=== PATIENT | male | born 1965 | race Caucasian/White ===

== ENCOUNTER 2019-01-25 09:56 | Emergency (ER) | payer BC ==
[~2019-01-25] VITALS: Ht 177.8 cm; Wt 136.1 kg
[~2019-01-25 09:56] MED LIST: Excedrin Extra1 EACH; LEVSOD100 PO; OXYACE5T; Prednisone20 MG PO
[2019-01-25 10:56] LABS: BASOPHILS ABSOLUTE AUTO 0.08 K/mm3 (0.00-0.23); BASOPHILS PERCENT AUTO 1 % (0-2); EOSINOPHILS ABSOLUTE AUTO 0.08 K/mm3 (0.00-0.68); EOSINOPHILS PERCENT AUTO 1 % (0-6); Hematocrit 45.7 % (37.0-53.0); Hemoglobin 16.1 g/dL (13.5-17.5); IMMATURE GRAN ABSOLUTE AUTO 0.03 K/mm3 (0.00-0.10); IMMATURE GRAN PERCENT AUTO 0 % (0-1); LYMPHOCYTES ABSOLUTE AUTO 1.32 K/mm3 (0.84-5.20); LYMPHOCYTES PERCENT AUTO 15 % (21-46); MONOCYTES ABSOLUTE AUTO 0.65 K/mm3 (0.16-1.47); MONOCYTES PERCENT AUTO 7 % (4-13); Mean Corpuscular HGB 29.7 pg (26.0-34.0); Mean Corpuscular HGB Conc 35.2 g/dL (31.5-36.5); Mean Corpuscular Volume 84 fL (80-100); Mean Platelet Volume 12.6 fL (9.1-12.4); NEUTROPHILS ABSOLUTE AUTO 6.73 K/mm3 (1.96-9.15); NEUTROPHILS PERCENT AUTO 76 % (41-73); Platelet Count 144 K/mm3 (150-400); RDW Coefficient Variation 13.6 % (11.7-14.2); RDW Standard Deviation 41.4 fL (35.1-46.3); Red Blood Cell Count 5.42 M/mm3 (4.30-5.90); White Blood Cell Count 8.89 K/mm3 (4.00-11.30)
[2019-01-25 11:16] LABS: Alanine Aminotransfer (ALT/SGP 71 U/L (12-78); Albumin, Blood 4.2 g/dL (3.4-5.0); Albumin/Globulin Ratio 1.4 (0.8-1.8); Alk Phos 79 U/L (50-136); Anion Gap 8 mmol/L (6-16); Aspartate Aminotrans (AST/SGOT 34 U/L (12-37); Bilirubin, Total 0.7 mg/dL (0.1-1.0); Blood Urea Nitrogen 14 mg/dL (8-24); Bun/Creatinine Ratio 12.1 (12.0-20.0); CO2, Blood 21 mmol/L (21-32); Calcium, Blood 8.5 mg/dL (8.5-10.1); Chloride, Blood 114 mmol/L (98-108); Creatinine, Blood 1.16 mg/dL (0.60-1.20); Glomerular Filtration Rate >60 (60-); Glucose, Blood 118 mg/dL (70-99); Potassium, Blood 4.3 mmol/L (3.5-5.5); Sodium, Blood 143 mmol/L (136-145); Total Protein, Blood 7.2 g/dL (6.4-8.2)
[2019-01-25] MEDS ORDERED: HYDMOR2 PO (14:39)
[2019-01-25] MEDS ORDERED: Zofran8 MG PO (14:39)
[2019-01-25] MEDS ORDERED: KETO10 PO (14:39)
== END 2019-01-25 15:11 | disposition home or self-care (01) ==
LOC: ER 09:56
PROVIDERS: Emergency Medicine
DX: N13.2 Hydronephrosis with renal and ureteral calculous obstruction (principal); Z88.8 Allergy status to other drugs, medicaments and biological substances; Z79.52 Long term (current) use of systemic steroids; Z79.899 Other long term (current) drug therapy; E03.9 Hypothyroidism, unspecified
CPT/HCPCS: 36415; 74177; 80053; 83690; 85025; 93005; 93010; 96361; 96374-59; 96375; 96376; 99284-25; J1170; J1885; J2405; J7120; Q9967

== ENCOUNTER → 2020-02-10 | Outpatient (CLI) | payer BC ==
[~2020-02-10] MED LIST changes: +HYDMOR2 PO; +KETO10 PO; +Motion Sickness25 M1 PO; +NAPR220 PO; +Zofran8 MG PO
== END | disposition home or self-care (01) ==
LOC: PLD 09:12 → LAB SHORT 09:12
DX: D48.5 Neoplasm of uncertain behavior of skin (principal)
CPT/HCPCS: 88305

== ENCOUNTER → 2020-04-10 | Outpatient (CLI) | payer BC | END | disposition home or self-care (01) | LOC: PLD 07:30 → LAB SHORT 07:30 | DX: C44.41 Basal cell carcinoma of skin of scalp and neck (principal) | CPT/HCPCS: 88305 ==

== ENCOUNTER 2021-12-25 08:49 | Day surgery (SDC) | payer BC ==
[~2021-12-25] VITALS: Ht 177.8 cm; Wt 146.1 kg
[2021-12-25] MEDS ORDERED: FLUN25SP (09:14)
--- NOTE | 2021-12-25 09:24 | NUR ---
12/25/21 0924 [place] Aguillon CALL LIGHT WITHIN REACH.
== END 2021-12-25 10:40 | disposition home or self-care (01) ==
LOC: ORSCSDS 08:49
PROVIDERS: Anesthesiology
PROC: 3E0R33Z Introduction of Anti-inflammatory into Spinal Canal, Percutaneous Approach (ICD-10-PCS; principal; 2021-12-25 10:15)
DX: M51.16 Intervertebral disc disorders with radiculopathy, lumbar region (principal); E66.01 Morbid (severe) obesity due to excess calories; Z68.42 Body mass index [BMI] 45.0-49.9, adult; M54.50 Low back pain, unspecified
CPT/HCPCS: J1040

== ENCOUNTER 2022-03-01 09:23 | Day surgery (SDC) | payer BC ==
[~2022-03-01] VITALS: Ht 177.8 cm; Wt 144.8 kg
[~2022-03-01 09:23] MED LIST changes: +FLUN25SP
== END 2022-03-01 10:41 | disposition home or self-care (01) ==
LOC: ORSCSDS 09:23
PROVIDERS: Anesthesiology
PROC: 3E0R33Z Introduction of Anti-inflammatory into Spinal Canal, Percutaneous Approach (ICD-10-PCS; principal; 2022-03-01 10:15)
DX: M51.16 Intervertebral disc disorders with radiculopathy, lumbar region (principal); M54.50 Low back pain, unspecified; M48.00 Spinal stenosis, site unspecified; E66.01 Morbid (severe) obesity due to excess calories; Z68.42 Body mass index [BMI] 45.0-49.9, adult
CPT/HCPCS: J1040

== ENCOUNTER → 2022-09-30 | Outpatient (CLI) | payer BC | END | disposition home or self-care (01) | LOC: LAB SHORT 10:34 | DX: D48.5 Neoplasm of uncertain behavior of skin (principal) | CPT/HCPCS: 88305 ==

== ENCOUNTER 2023-01-23 17:47 | Emergency (ER) | payer BC ==
[~2023-01-23] VITALS: Ht 177.8 cm; Wt 99.8 kg
[2023-01-23 18:29] LABS: BASOPHILS ABSOLUTE AUTO 0.06 K/mm3 (0.00-0.23); BASOPHILS PERCENT AUTO 1 % (0-2); EOSINOPHILS ABSOLUTE AUTO 0.04 K/mm3 (0.00-0.68); EOSINOPHILS PERCENT AUTO 0 % (0-6); Hematocrit 47.7 % (37.0-53.0); Hemoglobin 17.2 g/dL (13.5-17.5); IMMATURE GRAN ABSOLUTE AUTO 0.04 K/mm3 (0.00-0.10); IMMATURE GRAN PERCENT AUTO 0 % (0-1); LYMPHOCYTES ABSOLUTE AUTO 0.87 K/mm3 (0.84-5.20); LYMPHOCYTES PERCENT AUTO 7 % (21-46); MONOCYTES ABSOLUTE AUTO 1.05 K/mm3 (0.16-1.47); MONOCYTES PERCENT AUTO 9 % (4-13); Mean Corpuscular HGB 29.7 pg (26.0-34.0); Mean Corpuscular HGB Conc 36.1 g/dL (31.5-36.5); Mean Corpuscular Volume 82 fL (80-100); Mean Platelet Volume 12.2 fL (9.1-12.4); NEUTROPHILS ABSOLUTE AUTO 10.34 K/mm3 (1.96-9.15); NEUTROPHILS PERCENT AUTO 83 % (41-73); Platelet Count 130 K/mm3 (150-400); RDW Coefficient Variation 13.3 % (11.7-14.2); RDW Standard Deviation 39.8 fL (35.1-46.3); Red Blood Cell Count 5.79 M/mm3 (4.30-5.90)
[2023-01-23 18:53] LABS: Albumin, Blood 4.1 g/dL (3.4-5.0); Albumin/Globulin Ratio 1.3 (0.8-1.8); Bilirubin, Total 2.4 mg/dL (0.1-1.0); Bun/Creatinine Ratio 12.3 (12.0-20.0); Calcium, Blood 9.2 mg/dL (8.5-10.1); Creatinine, Blood 1.55 mg/dL (0.60-1.20); Globulin, Blood 3.2 g/dL (2.2-4.0); Potassium, Blood 4.1 mmol/L (3.5-5.5); Total Protein, Blood 7.3 g/dL (6.4-8.2)
[2023-01-23 23:30] VITALS: BP 106/69
[2023-01-24 00:39] LABS: Source, Urine Clean Catch
[2023-01-24 00:52] LABS: Blood, Urine 1+ (Neg); Glucose Qualitative, Urine Neg (Neg); Ketones, Urine 4+ (Neg); Leukocyte Esterase, Urine 2+ (Neg); Nitrite, Urine Neg (Neg); Protein, Urine 2+ (Neg); Specific Gravity, Urine 1.025 (1.003-1.022); Urobilinogen, Urine 1+ (Normal)
[2023-01-24 01:11] LABS: Appearance, Urine Hazy (Clear); Bilirubin, Urine 1+ (Neg); Color, Urine Amber (P-Yellow)
[2023-01-24 01:12] LABS: Amorphous Light (0-Heavy); Bacteria Mod /hpf; Mucus Mod (0-Heavy); Squamous Epithelial Cells Few /hpf (Few)
[2023-01-24] MEDS ORDERED: TAMS.4ER PO (01:39)
[2023-01-24] MEDS ORDERED: SULTRIDS PO (01:39)
[2023-01-24 01:45] LABS: Calcium, Ionized (POC) 1.23 mmol/L (1.10-1.46); Chloride (POC) 103 mmol/L (98-108); Creatinine (POC) 1.4 mg/dL (0.8-1.3); Glucose (ISTAT POC) 94 mg/dL (70-99); Hemoglobin (POC) 14.3 g/dL (13.5-17.5); Potassium (POC) 4.4 mmol/L (3.5-5.5); Sodium (POC) 140 mmol/L (135-148); Total CO2 (POC) 25 mmol/L (21-32)
[2023-01-24] MEDS ORDERED: ONDA4ODT MM (02:01)
[2023-01-24] MEDS ORDERED: IBUP800 PO (02:01)
[2023-01-24] MEDS ORDERED: OXAYDO5 M1 PO (02:01)
== END 2023-01-24 02:13 | disposition home or self-care (01) ==
LOC: ER 17:47
PROVIDERS: Physician Assistant; Student in an Organized Health Care Education/Training Program
DX: N13.2 Hydronephrosis with renal and ureteral calculous obstruction (principal); N17.9 Acute kidney failure, unspecified; R82.71 Bacteriuria; N39.0 Urinary tract infection, site not specified; E03.9 Hypothyroidism, unspecified
CPT/HCPCS: 74176; 80047; 80053; 81001; 85014; 85025; 87086; 96374; 96375; 99284-25; A9270; J1885; J2405; J7030

== ENCOUNTER → 2024-10-19 | Outpatient (CLI) | payer BC ==
[~2024-10-19] MED LIST changes: +IBUP800 PO; +ONDA4ODT MM; +OXAYDO5 M1 PO; +SULTRIDS PO; +TAMS.4ER PO
[2024-10-19 17:48] LABS: Body Fluid Crystals NEG (NEGATIVE)
[2024-10-19 18:10] LABS: WBC Count, Synovial Fluid 235 /mm3 (0-180)
[2024-10-19 18:26] LABS: RBC Count, Synovial Fluid 451 /mm3 (0-0)
[2024-10-19 18:31] LABS: Appearance, Synovial Fluid Clear (Clear); Color, Synovial Fluid Yellow (None-P Yel)
[2024-10-19 19:05] LABS: Lymphs, Synovial Fluid 40 % (0-15); Monocytes/Macrophages, Synovia 56 % (0-65); Neutrophils, Synovial Fluid 4 % (0-24)
== END | disposition home or self-care (01) ==
LOC: LAB 17:15 → LAB SHORT 17:15
PROVIDERS: Orthopaedic Surgery
DX: M25.461 Effusion, right knee (principal)
CPT/HCPCS: 87070; 89051; 89060

== ENCOUNTER 2025-03-22 09:26 | Day surgery (SDC) | payer BC ==
[~2025-03-22] VITALS: Ht 177.8 cm; Wt 95.6 kg
[~2025-03-22 09:26] MED LIST changes: +Lidocaine 1%-Epineph 1:100000 20 ML MDV ONE
[2025-03-22] MEDS ORDERED: CeFAZolin Sodium 2,000 MG VIAL ONE (09:41)
[2025-03-22] MEDS ORDERED: Tranexamic Acid 100 ML IV ONE (09:42)
[2025-03-22] MEDS ORDERED: CELEBREX200 MG PO (10:07)
[2025-03-22] MEDS ORDERED: EUTHYROX125 MC1 PO (10:08)
[2025-03-22] MEDS ORDERED: Bupivacaine HCl 0.25% 30 ML Injection ONE (12:24)
[2025-03-22] MEDS ORDERED: Midazolam HCl 1MG / ML 2ML Vial ONE (12:24)
[2025-03-22] MEDS ORDERED: Dexamethasone Sod Phos 10 MG/ML 1ML VIAL ONE (12:25)
--- NOTE | 2025-03-22 12:52 | NUR ---
03/22/25 1252 Reena Mendez POPLITEAL BLOCK PERFORMED BY DR ONEAL ON RIGHT LEG. PT TOLERATED WELL.
[2025-03-22] MEDS ORDERED: FentaNYL Citrate 50 MCG/ML 2 ML Injection ONE (13:04)
[2025-03-22] MEDS ORDERED: Ondansetron HCl 2 MG / ML 2ML Vial ONE (13:29)
[2025-03-22] MEDS ORDERED: Bupivacaine 0.5% W/EPI 1:200000 SDV 30 ML Vial ONE (13:42)
--- NOTE | 2025-03-22 13:59 | NUR ---
03/22/25 1359 Isaura Champion REPORT RECEIVED FROM RAYMON AND RN. PT ASLEEP UPON ARRIVAL. VSS. 8L NRB. CAP REFILL <3 SECONDS ON RIGHT TOES, RIGHT TOES PINK, WARM, MOIST. RIGHT PEDAL PULSE PALPABLE.
[2025-03-22 14:57] VITALS: BP 138/79
--- NOTE | 2025-03-22 15:00 | NUR ---
03/22/25 1500 Isaura Champion ORAL PAIN MEDICATION GIVEN
== END 2025-03-22 15:27 | disposition home or self-care (01) ==
LOC: ORSCSDS 09:26
PROVIDERS: Orthopaedic Surgery Sports Medicine
PROC: 0QBD4ZZ Excision of Right Patella, Percutaneous Endoscopic Approach (ICD-10-PCS; principal; 2025-03-22 10:30)
DX: M87.9 Osteonecrosis, unspecified (principal); M67.51 Plica syndrome, right knee; E07.9 Disorder of thyroid, unspecified; Z79.899 Other long term (current) drug therapy
CPT/HCPCS: A9270; C1713; J0166; J0690; J1100; J2250; J2405; J2704; J3010; J7120